=== PATIENT | female | born 1990 | race Caucasian/White ===

== ENCOUNTER 2021-05-08 11:09 | Day surgery (SDC) | payer OTHER ==
[~2021-05-08] VITALS: Ht 149.9 cm; Wt 61.9 kg
[2021-05-08 12:13] LABS: INR 1.17 (0.9-1.2); PROTHROMBIN TIME 14.3 SECONDS (11.8-13.4); PTT 32.3 SECONDS (24.4-34.7)
[2021-05-08 12:25] LABS: ALBUMIN 3.9 g/dL (3.4-5.0); BILIRUBIN - TOTAL 0.5 mg/dL (0.2-1.0); BUN/CREAT RATIO (CALC) 11.5 RATIO; CREATININE 0.61 mg/dL (0.51-0.95); POTASSIUM 3.8 mmol/L (3.5-5.1); TOTAL PROTEIN 7.9 g/dL (6.4-8.2)
[2021-05-08 12:29] LABS: BASOPHIL 0.2 % (0-2); EOSINOPHIL 0.4 % (0-5); HCT 34.2 % (37.0-47.0); HGB 11.2 g/dl (12.5-16.0); LYMPHOCYTE 10.2 % (15-48); MCH 30.4 pg (25.0-31.0); MCHC 32.7 g/dL (32.0-36.0); MCV 92.9 fL (78.0-100.0); MONOCYTE 9.9 % (0-12); NRBC 0; PLT 234 K/uL (150-400); RBC 3.68 M/uL (4.20-5.40); RDW 12.8 % (11.5-14.0); WBC 13.5 K/uL (4.0-10.5)
[2021-05-08 16:20] LABS: BILIRUBIN NEGATIVE (NEGATIVE); BLOOD 3+ Ery/uL (NEGATIVE); CLARITY CLEAR (CLEAR); COLOR YELLOW (YELLOW); GLUCOSE (U) NORMAL (NORMAL); LEUKOCYTES NEGATIVE Leu/uL (NEGATIVE); NITRITE NEGATIVE (NEGATIVE); PROTEIN NEGATIVE (NEGATIVE); SPECIFIC GRAVITY <=1.005 (1.001-1.030); UROBILINOGEN 0.2 mg/dL (0.2-1.0)
[2021-05-08 16:27] LABS: SQUAMOUS EPITHELIAL CELLS RARE
[2021-05-08] MEDS ORDERED: ONDANSETRON ODT4 MG PO (21:02)
[2021-05-08] MEDS ORDERED: COLACE100 MG PO (21:02)
[2021-05-08] MEDS ORDERED: PERCOCET 5-3251 EACH PO (21:02)
[2021-05-08] MEDS ORDERED: IBUPROFEN800 M1 PO (21:02)
== END 2021-05-09 11:00 | disposition home or self-care (01) ==
LOC: FER 11:09 → FAS 15:09 → FMS 15:10 → FAS 20:54 → FMS 20:54 → FAS 05-09 11:00
PROVIDERS: Emergency Medicine
DX: O03.9 Complete or unspecified spontaneous abortion without complication (principal); N80.0 Endometriosis of uterus; N83.202 Unspecified ovarian cyst, left side; I10 Essential (primary) hypertension; Z88.8 Allergy status to other drugs, medicaments and biological substances; Z79.899 Other long term (current) drug therapy; Z20.822 Contact with and (suspected) exposure to COVID-19
CPT/HCPCS: 36415; 76801; 80053; 81001; 84702; 85025; 85610; 85730; 86850; 86900; 86901; J1100; J1170; J1885; J2250; J2405; J2704; J3010; J7030; J7120; J7121; U0002